=== PATIENT | female | born 1995 | race Caucasian/White ===

== ENCOUNTER 2017-02-17 18:56 | Emergency (ER) | payer BC, OTHER ==
[~2017-02-17] VITALS: Ht 162.6 cm; Wt 88.7 kg
[2017-02-17 19:06] VITALS: Ht 162.6 cm; Wt 88.7 kg
[2017-02-17 19:36] LABS: URINE BLOOD (Dip) POC 3+ (NEGATIVE)
[2017-02-17] MEDS ORDERED: PHEN-538 PO (19:53)
[2017-02-17] MEDS ORDERED: CEPH250S33 PO (19:53)
--- NOTE | 2017-02-17 19:57 | ERD ---
ER Documentation Chief Complaint Chief Complaint painful/burning urination x 1 day, also c/o blood in urine HPI 21-year-old female presents with dysuria for 1 day. She denies fevers, vomiting , shortness breath chest pain. She has pain in her urethra and slightly in the suprapubic area. She has had some discharge of . Last menstrual period approximately 3 weeks ago. ROS All systems reviewed and are negative except as per history of present illness. Medications Home Meds Active Scripts Phenazopyridine Hcl* (Pyridium*) 200 Mg Tab, 200 MG PO TID, #6 TAB Prov:NASIR CUBA MD 02/17/17 Cephalexin* (Cephalexin* Susp) 250 Mg/5 Ml Susp.recon, 500 MG PO Q6 for 5 Days, #1 BOTTLE Prov:NASIR CUBA MD 02/17/17 Allergies Allergies: Coded Allergies: No Known Allergy (Unverified , 02/17/17) PMhx/Soc Medical and Surgical Hx: pt denies Medical Hx, pt denies Surgical Hx History of Surgery: No Anesthesia Reaction: No Hx Neurological Disorder: No Hx Respiratory Disorders: No Hx Cardiac Disorders: No Hx Psychiatric Problems: No Hx Miscellaneous Medical Probl: Yes (gastritis; acid reflux disease) Hx Alcohol Use: No Hx Substance Use: No Hx Tobacco Use: No Physical Exam Vitals Vital Signs Date Time Temp Pulse Resp B/P Pulse Ox O2 Delivery O2 Flow Rate FiO2 02/17/17 19:06 99.7 100 20 144/75 100 Physical Exam Const: [], Uncomfortable due to dysuria. Head: Atraumatic Eyes: Normal Conjunctiva ENT: Normal External Ears, Nose and Mouth. Neck: Full range of motion..~ No meningismus. Resp: Clear to auscultation bilaterally Cardio: Regular rate and rhythm, no murmurs Abd: Soft, non tender, non distended. Normal bowel sounds Skin: No petechiae or rashes Back: No midline or flank tenderness Ext: No cyanosis, or edema Neur: Awake and alert Psych: Normal Mood and Affect Results 24 hrs Laboratory Tests Test 02/17/17 19:34 Bedside Urine pH (LAB) 6.0 Bedside Urine Protein (LAB) 3+ Bedside Urine Glucose (UA) Negative Bedside Urine Ketones (LAB) 3+ Bedside Urine Blood 3+ Bedside Urine Nitrite (LAB) Positive Bedside Urine Leukocyte Esterase (L Trace Current Medications Medications (Trade) Dose Ordered Sig/Russell Route PRN Reason Start Time Stop Time Status Last Admin Dose Admin Cephalexin (Keflex) 500 mg ONCE ONCE PO 02/17/17 20:00 02/17/17 20:01 Ibuprofen (Motrin) 600 mg ONCE ONCE PO 02/17/17 20:00 02/17/17 20:01 Phenazopyridine HCl (Pyridium) 200 mg ONCE ONCE PO 02/17/17 20:00 02/17/17 20:01 Procedures/MDM And shows positive signs of infection and hCG is negative. Patient presents with dysuria and signs of urinary tract infection without signs to suggest acute abdomen, pyelonephritis, PID, tubal ovarian abscess, . She will treated with Keflex here and at home and as well and instructions for clear fluids ibuprofen and return precautions for fevers, vomiting, abdominal pain, new worsening symptoms. The child was stable with no new complaints during the ER course. Clinically there is currently no evidence to suggest meningitis, sepsis, acute abdomen or appendicitis, pneumonia, or any other emergent condition that appears to require further evaluation or hospitalization. The child will be sent home with the parents with instructions to return for any new or worsening symptoms per the aftercare instructions. They should otherwise follow up with her primary care doctor this week. Departure Diagnosis: Primary Impression: Dysuria Condition: Stable Patient Instructions: Understanding Urinary Tract Infections (UTIs) Additional Instructions: Urine shows infection. Okay to take Tylenol or ibuprofen for pain as well.. Plenty of fluids at home. Recheck for fevers, vomiting, new worsening symptoms or primary care doctor. NASIR CUBA MD Feb 17, 2017 19:57
[2017-02-17] MEDS ORDERED: PHENAZOPYRIDINE 100 MG TAB PO ONE (20:00)
[2017-02-17] MEDS ORDERED: CEPHALEXIN 500 MG CAP PO ONE (20:00)
[2017-02-17] MEDS ORDERED: IBUPROFEN 600 MG TAB PO ONE (20:00)
[2017-02-17 20:07] VITALS: BP 129/74; PULSE 96; RESP 19; TEMP 100.1
== END 2017-02-17 20:13 | disposition home or self-care (01) ==
LOC: FTE 18:56
DX: R30.0 Dysuria (principal); R10.2 Pelvic and perineal pain
CPT/HCPCS: 81003; Z7502; Z7610; 99283

== ENCOUNTER 2017-03-13 17:56 | Emergency (ER) | payer OTHER ==
[~2017-03-13] VITALS: Ht 162.6 cm; Wt 87.7 kg
[~2017-03-13 17:56] MED LIST: CEPH250S33 PO; PHEN-538 PO
[2017-03-13 18:20] VITALS: Ht 162.6 cm; Wt 87.7 kg
--- NOTE | 2017-03-13 21:20 | ERD ---
ER Documentation Chief Complaint Chief Complaint right flank x 2 weeks HPI This 21-year-old female presents to emergency department complaining of bilateral flank pain, vaginal discharge, unprotected sexual impounder 3-4 weeks ago, pt reports that she was seen here and treated with liquid Keflet , pt took full course of abx , vaginal d.c started while on ABX ROS All systems reviewed and are negative except as per history of present illness. Medications Home Meds Active Scripts Metronidazole* (Metrogel* Vaginal) 0.75% -70 Gram Gel.w.appl, 1 APPFUL VAG HS for 7 Days, TUB Prov:VIC,GODWIN 03/14/17 Doxycycline Hyclate* (Doxycycline Hyclate*) 100 Mg Tablet.dr, 100 MG PO BID for 10 Days, TAB Prov:VIC,GODWIN 03/14/17 Phenazopyridine Hcl* (Pyridium*) 200 Mg Tab, 200 MG PO TID, #6 TAB Prov:NASIR CUBA MD 02/17/17 Cephalexin* (Cephalexin* Susp) 250 Mg/5 Ml Susp.recon, 500 MG PO Q6 for 5 Days, #1 BOTTLE Prov:NASIR CUBA MD 02/17/17 Allergies Allergies: Coded Allergies: No Known Allergy (Unverified , 02/17/17) PMhx/Soc History of Surgery: No Anesthesia Reaction: No Hx Neurological Disorder: No Hx Respiratory Disorders: No Hx Cardiac Disorders: No Hx Psychiatric Problems: No Hx Miscellaneous Medical Probl: Yes (gastritis; acid reflux disease) Hx Alcohol Use: No Hx Substance Use: No Hx Tobacco Use: No Physical Exam Vitals Vitals stable, triage notes reviewed Physical Exam Const: Well-nourished, well-hydrated, well-appearing 21-year-old female in no acute distress 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 Abdomen: Symmetric, soft nontender nondistended, no CVA tenderness External Genitalia: Normal Skin no condyloma, lesion, or ulcer Speculum: Normal vaginal mucosa, gelatinous clear tenacious vaginal discharge with white curd-like discharge Bimanual: No adnexal masses or tenderness, No CMT Back: No midline or flank tenderness Neur: Awake and alert Psych: Normal Mood and Affect Results 24 hrs Laboratory Tests Test 03/13/17 21:40 Urine Color YELLOW Urine Clarity CLEAR Urine pH 6.0 Urine Specific [place] 1.011 Urine Ketones 1+mg/dL Urine Nitrite NEGATIVEmg/dL Urine Bilirubin NEGATIVEmg/dL Urine Urobilinogen NEGATIVEmg/dL Urine Leukocyte Esterase NEGATIVELeu/ul Urine Hemoglobin NEGATIVEmg/dL Urine Glucose NEGATIVEmg/dL Urine Total Protein NEGATIVEmg/dl Chlamydia trachomatis RNA (TMA) NOT DETECTED Chlamydia/GC Comment SEE NOTE Neisseria gonorrhoeae RNA (TMA) NOT DETECTED Current Medications Medications (Trade) Dose Ordered Sig/Russell Route PRN Reason Start Time Stop Time Status Last Admin Dose Admin Ceftriaxone Sodium (Rocephin) 250 mg ONCE ONCE IM 03/13/17 21:30 03/13/17 21:31 DC 03/13/17 21:52 Azithromycin (Zithromax) 1,000 mg ONCE ONCE PO 03/13/17 21:30 03/13/17 21:31 DC 03/13/17 21:52 Procedures/MDM This 21-year-old female presents to emergency department for evaluation of vaginal discharge, right flank pain, patient reports that she was seen and treated here for a urinary tract infection 3-4 weeks ago, at the same time she had unprotected sex with a new partner, patient reports that vaginal discharge started while on antibiotics, and has continued. Patient reports mild pelvic pain described as burning, and right-sided flank pain. Emergency room course includes history and physical exam, pelvic exam with cervical swabs obtained and sent to lab, urine sent for GC and chlamydia, prophylactic treatment with 1 g of azithromycin, 250 g of Rocephin, patient will be discharged home with doxycycline 100 mg 1 tab p.o. twice daily 10 days, urinalysis negative for evidence of infection, vaginal wet mount positive for bacteria, negative for clue cells plan to treat with charge L1 ampule PV nightly 7 days. 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 I feel the patient is stable for discharge at this time. I have discussed results, examination findings, the treatment plan with the patient and family present prior to discharge. Indications for emergent reevaluation, side effects of medication were also discussed. All questions were answered. Patient verbalizes understanding and agrees with plan of care. Departure Diagnosis: Primary Impression: STI (sexually transmitted infection) Additional Impression: Vaginosis Condition: Good Patient Instructions: Vaginal Infection: Bacterial Vaginosis, What Are Sexually Transmitted Diseases (STDs)? Additional Instructions: Thank you for for coming to [facility] for your care today. Please ask your nurse or provider if you have questions about your care today and do not leave until all your questions have been answered. Please use any medications given as directed and follow-up with your doctor (or the doctor you were referred to) in the next 2-3 days. If you do not have a primary care doctor you may follow up at the [facility] (listed below). You may also use motrin and tylenol as needed for fever and/or pain unless instructed otherwise by your provider or nurse. Indications for more urgent follow-up have been discussed, but you may return to the Emergency Department at ANY time for any worrisome or worsening symptoms. If you have abdominal pain, please know that no test or exam you received is perfect and you should follow up within 8 hours for continued pain. If you had any imaging studies today, such as an X-Ray or CT Scan, these studies will be reviewed later by a radiologist. You will be called if there are important findings that were not identified today, so make sure the contact information you provided at registration is correct. If you received any narcotic pain control medicine today, such as Vicodin, Morphine or Dilaudid, your coordination and judgment may be affected for a number of hours. Please do not drive or operate heavy machinery, and you may want someone to assist you at home. If you were given a prescription for narcotic medication, be aware that it is very addictive- use sparingly and only if necessary. GODWIN HO Mar 13, 2017 21:20
[2017-03-13] MEDS ORDERED: AZITHROMYCIN 250 MG TAB PO ONE (21:30)
[2017-03-13] MEDS ORDERED: CEFTRIAXONE 250 MG INJ IM ONE (21:30)
[2017-03-13 22:01] LABS: ADD UMIC NO; UR ASCORBIC ACID NEGATIVE (NEGATIVE); UR BILIRUBIN (Dip) NEGATIVE (NEGATIVE); UR BLOOD (Dip) NEGATIVE (NEGATIVE); UR CLARITY CLEAR (CLEAR); UR COLOR YELLOW (YELLOW); UR GLUCOSE (Dip) NEGATIVE (NEGATIVE); UR KETONES (Dip) 1+ mg/dL (NEGATIVE); UR LEUKOCYTE ESTERASE (Dip) NEGATIVE Leu/ul (NEGATIVE); UR NITRITE (Dip) NEGATIVE (NEGATIVE); UR SPECIFIC GRAVITY (Dip) 1.011 (1.003-1.030); UR TOTAL PROTEIN (Dip) NEGATIVE (NEGATIVE); UR UROBILINOGEN (Dip) NEGATIVE (NEGATIVE)
--- NOTE | 2017-03-13 22:42 | RADRPT ---
PROCEDURE: Ultrasound pelvis CLINICAL INDICATION: Pelvic Pain (Non ) TECHNIQUE: Multiple ramires scale and color Doppler images of the pelvis were obtained transabdominal ly and transvaginally. Images were reviewed PACS workstation COMPARISON: None FINDINGS: The uterus is identified, measuring 7.1 x 3.6 x 5.9 cm. The endometrial canal appears within normal limits, measuring 12 mm in thickness. The right ovary measures 3.0 x 1.8 x 2.2 cm. The left ovary measures 3.2 x 1.9 x 2.2 cm. The ovari es appear unremarkable in echotexture. There are left ovarian cysts, up to 2.1 cm. There is bilater al vascular flow identified. There is no evidence of free fluid. There is no abnormal adnexal mass. IMPRESSION: 1. No adnexal mass or free fluid. 2. Left ovarian cysts, up to 2.1 cm. RPTAT: HBST .Christoph Sheikh MD, MD Date Time Electronically viewed and signed by .Christoph Sheikh MD, on 03/13/2017 22:42 .T/
[2017-03-14] MEDS ORDERED: DOXY100T20 PO (01:12)
[2017-03-14] MEDS ORDERED: METR70GE15 VAG (01:13)
[2017-03-14 01:30] VITALS: BP 141/71; PULSE 81; RESP 20; TEMP 99.7
== END 2017-03-14 01:32 | disposition home or self-care (01) ==
LOC: FTE 17:56
DX: A64 Unspecified sexually transmitted disease (principal); N76.0 Acute vaginitis
CPT/HCPCS: 76830; 76856; 81003; 87081; 87210; 87591; 96372; J0696; Z7502; Z7610